=== PATIENT | male | born 1980 | race Caucasian/White ===

== ENCOUNTER 2024-08-29 19:00 | Emergency (ER) | payer OTHER, SELFPAY ==
[2024-08-29 19:07] VITALS: BP 141/97
[2024-08-29 19:30] LABS: % Basophils 0.6 % (0-2); % Eosinophils 3.5 % (0-6); % Immature Granulocytes 0.4 % (0-0.5); % Lymphocytes 30.2 % (20.5-51.1); % Monocytes 7.6 % (1.7-9.3); % Neutrophils 57.7 % (42.2-75.2); Absolute Basophils 0.1 10^3/uL (0-0.2); Absolute Eosinophils 0.4 10^3/uL (0-0.7); Absolute Lymphocytes 3.2 10^3/uL (1.2-3.4); Absolute Monocytes 0.8 10^3/uL (0.1-0.6); Absolute Neutrophils 6.1 10^3/uL (1.4-6.5); Hematocrit 46.6 % (39.0-52.0); Hemoglobin 16.1 g/dL (13.0-18.0); Mean Corp Hgb Conc. 34.5 g/dL (33.0-37.0); Mean Corpuscular Hgb 30.6 pg (27.0-31.0); Mean Corpuscular Volume 88.6 fL (80.0-94.0); Mean Platelet Volume 10.9 fL (7.4-10.4); Nucleated Red Blood Cells % 0 % (-); Platelet Count 223 10^3/uL (130-400); Red Blood Cell Count 5.26 10^6/uL (4.70-6.10); Red Cell Dist. Width 12.6 % (11.5-14.5); White Blood Cell Count 10.6 10^3/uL (4.8-10.8)
[2024-08-29 19:37] LABS: Urine Albumin 1+ (Neg - Trace); Urine Bilirubin Negative (Negative); Urine Character Clear (Clear); Urine Color Yellow; Urine Glucose Negative (Negative); Urine Ketone Negative (Negative); Urine Leukocyte Negative (Negative); Urine Nitrite Negative (Negative); Urine Occult Blood Negative (Negative); Urine Specific Gravity 1.015 (<1.030); Urine Urobilinogen Negative (Neg - 1+)
[2024-08-29 19:50] LABS: Urine Mucus Many
[2024-08-29 19:51] LABS: Urine Bacteria Few (Negative); Urine Red Blood Cell 0-2 /HPF (0-2)
[2024-08-29 19:52] LABS: ALT (SGPT) 32 U/L (0-50); AST (SGOT) 28 U/L (17-59); Albumin 4.4 g/dl (3.5-5.0); Alkaline Phosphatase 78 U/L (38-126); Blood Urea Nitrogen 18 mg/dl (9-20); Calcium 9.8 mg/dl (8.4-10.2); Carbon Dioxide 24 mmol/L (22-30); Glucose 106 mg/dl (70-99); Total Bilirubin 1.5 mg/dl (0.2-1.3); Total Protein 7.1 g/dl (6.3-8.2); eGFR > 60.00
[2024-08-29 20:21] LABS: Chloride 102 mmol/L (98-107); Potassium 3.7 mmol/L (3.5-5.1); Sodium 135 mmol/L (135-145)
--- NOTE | 2024-08-29 22:12 | ED.GENMED ---
History of Present Illness
General
Chief Complaint: Back Pain
Time Seen by Provider: 08/29/24 22:08
History of Present Illness
History of Present Illness:
TIME OF INITIAL ENCOUNTER: 10:15 PM
HPI: The patient presents with left flank pain ongoing over the past week. Approximate days ago, he states that he fell on ice. He had intermittently been having pain just inferior to the left flank region. No fevers. At times, the pain worsens
with certain position changes of his thoracolumbar spine.
EXAM:
GENERAL: Well appearing in no distress
CERVICAL SPINE: Excellent AROM of cervical spine
HEAD: No evidence of craniofacial trauma
CHEST: No chest wall tenderness, normal heart sounds
LUNGS: Equal lung sounds, no respiratory distress
ABDOMEN: No abdominal tenderness, no peritoneal signs
BACK: No significant CVA tenderness, minimal discomfort to palpation at the left PSIS, negative straight leg raise
EXTREMITIES: Normal active range of motion, no tenderness
NEURO: Excellent strength all extremities, appropriate mental status, normal speech/language
NUMBER AND COMPLEXITY OF PROBLEMS ADDRESSED AT THE ENCOUNTER
� Chronic conditions affecting care: Anxiety/depression
� Acute Exacerbation and/or Progression of Chronic Illness: This is an acute problem
� Differential Diagnosis includes: Musculoskeletal low back pain, lumbar spine fracture, ureteral stone less likely, intra-abdominal hemorrhage very unlikely as hemoglobin is normal after 8 days of the initial injury
AMOUNT AND/OR COMPLEXITY OF DATA TO BE REVIEWED AND ANALYZED
� I performed an independent evaluation of and my interpretation is:
EKG:
CT: CAT scan personally viewed, vision radiologist suggested the possibility of an ileus but no sign of bowel obstruction no sign of kidney stone
X-rays:
Laboratory Studies: White count and hemoglobin are normal, chemistries unremarkable with normal renal function, no blood noted and no clear sign of infection on urinalysis
Other:
� Review of other/old records: No old records available for review
� Clinical information was obtained by an independent historian: I spoke to at bedside
� Prescriptions/Medications Considered but not given: Offered and considered analgesia with patient declines�he states he has been taking ibuprofen and turmeric at home
� Further testing considered but not performed: Lives at home
RISK OF COMPLICATIONS AND/OR MORBIDITY OR MORTALITY OF PATIENT MANAGEMENT
� Social determinants of health affecting care: Lives at home
� Discussion with other providers:
� Escalation of care including admission/observation vs risk of discharge considered: Given ongoing symptoms that are concerning to the patient, will obtain CT imaging.
ANY OTHER UPDATES:
12:10 AM: I reassessed patient, after he returned from CT he states that being on the CT table made his symptoms worse. Will give a shot of IM Toradol now. Discussed CT findings with patient. However no clear cause for his symptoms.
Phy Exam
Physical Exam
Physical Exam:
See HPI
Course
Orders/Labs/Results
Orders:
Orders
08/29/24 19:21
Complete Blood Count/With Diff Urgent
Comprehensive Metabolic Panel Urgent
Urinalysis Reflex To Culture Urgent
Date Specimen was Collected: 08/29/24
Time Specimen was Collected: 19:10
Urine Microscopic Reflex Cult Urgent
08/29/24 22:18
CT Abd/pel Without Iv Or Oral Urgent
Comment:
Reason For Exam: L flank pain
08/30/24 00:14
Ketorolac [Toradol] 30 mg IM NOW STA
Abnormal Lab Results
08/29/24
19:21
MPV 10.9 H fL
(7.4-10.4)
Absolute Monos (auto) 0.8 H 10^3/uL
(0.1-0.6)
Glucose 106 H mg/dl
(70-99)
Total Bilirubin 1.5 H mg/dl
(0.2-1.3)
Urine Bacteria (Reflex) Few A
(Negative)
Urine Albumin (Reflex) 1+ A
(Neg - Trace)
08/29/24 19:21
08/29/24 19:21
Vital Signs
Initial and Last Documented VS:
Initial Vital Signs
Temp Pulse Resp BP Pulse Ox
36.9 C 102 18 141/97 98
08/29/24 19:07 08/29/24 19:07 08/29/24 19:07 08/29/24 19:07 08/29/24 19:07
Last Documented Vital Signs
Temp Pulse Resp BP Pulse Ox
36.9 C 102 18 141/97 98
08/29/24 19:07 08/29/24 19:07 08/29/24 19:07 08/29/24 19:07 08/29/24 19:07
*Critical Care Note
Total Time (30-74mins, 75-104mins- exclusive of procedures): Not Applicable
ED Attending Note
-
Portions of this chart may have been created with voice recognition software.� Occasional wrong word or��sound alike� substitutions may have occurred due to the inherent limitations of voice recognition software.
Discharge Plan
Departure
Patient Disposition: Home (Routine Discharge)
Date of Disposition: 08/30/24
Time of Disposition: 00:14
Patient with high blood pressure during this ER visit?: Yes
Discharge Problem:
Back pain
Instructions: Low Back Pain (DC), Upper Back Pain (DC), BLOOD PRESSURE
Referrals:
Abiodun Monteiro, [Family Provider] -
Activity Restrictions/Additional Instructions:
I recommend 3-4 [id number] ibuprofen (Motrin) every 8 hours with food for a few days. Return here if worse. The CAT scan shows some mildly prominent loops of the small intestines but there is no sign of bowel obstruction. There is no sign
of kidney stones, there is no sign of masses, no sign of any problems with the soft tissue or bones. We gave you a dose of Toradol tonight. Follow-up your primary care doctor.
Interventions
Interventions:
*Risk Screen - Suicide Last Done: 08/29/24 19:07
*General Assessment Last Done: 08/29/24 19:07
*ED COVID-19 Vaccine History Last Done: 08/29/24 19:07
Discharge Date and Time
Print Language: CHADIAN
[2024-08-29 23:11] VITALS: BMI 25.9
[2024-08-30] MEDS: TORADOL 30 MG IM (00:18)
[2024-08-30 00:37] VITALS: BP 119/83
== END 2024-08-30 00:39 | disposition home or self-care (01) ==
LOC: EMR 19:00
PROVIDERS: Emergency Medicine; EMERGENCY PHYSICIAN Emergency Medicine; FAMILY PHYSICIAN Family Medicine
DX: M54.50 Low back pain, unspecified (principal); W00.0XXA Fall on same level due to ice and snow, initial encounter; F41.9 Anxiety disorder, unspecified; F32.A Depression, unspecified
CPT/HCPCS: 99284; 96372; 74176; 80053; 81003; 81015; 85025